=== PATIENT | female | born 1950 | race Caucasian/White ===

== ENCOUNTER 2016-05-19 12:59 | Emergency (ER) | payer OTHER ==
[~2016-05-19] VITALS: Ht 167.6 cm; Wt 83.9 kg
--- NOTE | ~2016-05-19 | EKG ---
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
[2016-05-19] MEDS ORDERED: ASPIR-TRIN325 MG PO (13:02)
[2016-05-19 13:21] LABS: ABSOLUTE NEUTROPHILS 4.4 thou/uL (1.4-8.2); BASOPHILS 0.7 % (0.0-2.0); EOSINOPHILS 0.6 % (0.0-3.0); HEMATOCRIT 40.8 % (37.0-47.0); HEMOGLOBIN 13.6 gm/dL (12.0-15.0); MCH 28.8 pg (26.0-34.0); MCHC 33.3 % (28.0-37.0); MCV 86.5 fL (80.0-100.0); MONOCYTES 9.3 % (1.0-8.0); PLATELET COUNT 198 thou/uL (150-400); POLYS 67.4 % (36.0-66.0); RBC 4.72 mil/uL (4.20-5.00); RDW 14.3 % (10.5-14.5); WBC 6.5 thou/uL (4.0-11.0)
[2016-05-19 13:24] LABS: MANUAL DIFF NO
[2016-05-19 13:56] LABS: URINE BILIRUBIN NEGATIVE (Negative); URINE BLOOD TRACE (Negative); URINE COLOR YELLOW; URINE GLUCOSE-RANDOM* NEGATIVE (Negative); URINE KETONES TRACE (Negative); URINE LEUKOCYTES-REFLEX NEGATIVE (Negative); URINE PROTEIN (DIPSTICK) NEGATIVE (Negative); URINE UROBILINOGEN 0.2 E.U./dl (0.2-1.0)
[2016-05-19 14:05] LABS: ANION GAP 12 mmol/L (7-16); BUN 12 mg/dL (7-18); CHLORIDE 99 mmol/L (98-107); CO2 24 mmol/L (21-32); GLUCOSE 97 mg/dL (70-99); SODIUM 135 mmol/L (136-145)
[2016-05-19 14:14] LABS: ALKALINE PHOSPHATASE 66 U/L (46-116); SGOT 23 U/L (15-37); SGPT 20 U/L (30-65); TOTAL BILIRUBIN 0.7 mg/dL (<0.1-1.0); TOTAL PROTEIN 8.1 g/dL (6.4-8.2); TROPONIN-I < 0.04 ng/mL (<0.04-0.07)
[2016-05-19 17:55] VITALS: BP 135/68
== END 2016-05-19 17:57 | disposition home or self-care (01) ==
LOC: ER 12:59
PROVIDERS: Emergency Medicine
DX: R53.1 Weakness (principal); F41.9 Anxiety disorder, unspecified; F17.210 Nicotine dependence, cigarettes, uncomplicated; Z88.8 Allergy status to other drugs, medicaments and biological substances